=== PATIENT | female | born 1965 | race Caucasian/White ===

== ENCOUNTER → 2019-03-06 | Outpatient (CLI) | payer BC ==
[~2019-03-06] MED LIST: PROHANCE 279.3MG/ML 15ML VIAL (A9576) As Ordered ONE
--- NOTE | 2019-03-06 16:57 | REP ---
MRI PANCREAS WITH AND WITHOUT CONTRAST: TECHNIQUE: Multiple sequences obtained in the axial and coronal planes prior to and following the intravenous administration of 14 mL ProHance. The visualized liver demonstrates scattered tiny cysts, less than 1 cm in diameter. The largest cyst is in the right lobe near the gallbladder measuring 8 mm maximally. Spleen is normal in size. Adrenals are normal with no nodule. Pancreas demonstrates no mass. There is no pancreatic duct dilatation. The common bile duct is mildly dilated up to 9 mm. No focal stricture or filling defect is seen involving the common bile duct. Visualized kidneys are unremarkable. No adenopathy or free fluid is seen in the visualized abdomen. IMPRESSION: Mild dilatation of the common bile duct 9 mm with no evidence of definite stricture and no evidence of choledocholithiasis. No evidence of cholelithiasis or gallbladder wall edema. There is mild central intrahepatic biliary prominence. There are several tiny subcentimeter cysts in the liver. The largest cyst is near the gallbladder in the right lobe of the liver 8 mm in maximum diameter. No pancreatic mass. No pancreatic duct dilatation. Unreviewed
== END ==
LOC: M RAD 14:39
PROVIDERS: ATTEND Internal Medicine Gastroenterology
DX: R10.9 Unspecified abdominal pain (principal)
CPT/HCPCS: 74183; A9576

== ENCOUNTER 2019-04-09 12:10 | Day surgery (SDC) | payer BC ==
[~2019-04-09] VITALS: Ht 162.6 cm; Wt 71.7 kg
[~2019-04-09 12:10] MED LIST changes: +ALBU8.5H INH; +MULTCAP PO; +NS 1,000 ML IV ONE; +ONDA4TAB6 PO; -PROHANCE 279.3MG/ML 15ML VIAL (A9576) As Ordered ONE; +SYMB16INH INH
[2019-04-09] MEDS ORDERED: ZYRTTAB8 PO (12:50)
[2019-04-09] MEDS ORDERED: LIDOCAINE 2% INJ 100 MG/5 ML SDV (FOR ANES.) As Ordered ONE (14:29)
[2019-04-09] MEDS ORDERED: PROPOFOL 200 MG/20 ML VIAL As Ordered ONE (14:29)
--- NOTE | 2019-04-09 15:02 | ROOR ---
Patient Name: Adrianna Arzate Procedure Date: 04/09/2019 2:06 PM Date of : 1965 Age: 54 Room: [facility] Gender: Female Note Status: Finalized Procedure: Upper GI endoscopy Indications: Dyspepsia, Nausea with vomiting Providers: Raj Arnold MD Referring MD: MARK MITCHELL DO Requesting Provider: Medicines: Monitored Anesthesia Care Complications: No immediate complications. Procedure: Pre-Anesthesia Assessment: - Prior to the procedure, a History and Physical was performed, and patient medications and allergies were reviewed. The patient is competent. The risks and benefits of the procedure and the sedation options and risks were discussed with the patient. All questions were answered and informed consent was obtained. Patient identification and proposed procedure were verified by the physician, the nurse and the anesthesiologist in the procedure room. Mental Status Examination: alert and oriented. Airway Examination: normal oropharyngeal airway and neck mobility. Respiratory Examination: clear to auscultation. CV Examination: normal. Prophylactic Antibiotics: The patient does not require prophylactic antibiotics. Prior Anticoagulants: The patient has taken no previous anticoagulant or antiplatelet agents. ASA Grade Assessment: II - A patient with mild systemic disease. After reviewing the risks and benefits, the patient was deemed in satisfactory condition to undergo the procedure. The anesthesia plan was to use monitored anesthesia care (MAC). Immediately prior to administration of medications, the patient was re-assessed for adequacy to receive sedatives. The heart rate, respiratory rate, oxygen saturations, blood pressure, adequacy of pulmonary ventilation, and response to care were monitored throughout the procedure. The physical status of the patient was re-assessed after the procedure. The Endoscope was introduced through the mouth, and advanced to the second part of duodenum. The upper GI endoscopy was accomplished without difficulty. The patient tolerated the procedure well. Findings: The examined esophagus was normal. The Z-line was regular and was found 40 cm from the incisors. Scattered moderate inflammation characterized by erosions, erythema, friability and granularity was found in the gastric antrum. Biopsies were taken with a cold forceps for histology. Verification of patient identification for the specimen was done by the physician and nurse using the patient's name, date and medical record number. Estimated blood loss was minimal. A 10 mm non-bleeding diverticulum was found in the first portion of the duodenum. Patchy severe inflammation characterized by congestion (edema), erythema, friability and granularity was found in the duodenal bulb and in the first portion of the duodenum. Biopsies for histology were taken with a cold forceps for evaluation of celiac disease. Impression: - Normal esophagus. - Z-line regular, 40 cm from the incisors. - Gastritis. Biopsied. - Non-bleeding duodenal diverticulum. - Duodenitis. Biopsied. Recommendation: - Patient has a contact number available for emergencies. The signs and symptoms of potential delayed complications were discussed with the patient. Return to normal activities tomorrow. Written discharge instructions were provided to the patient. - High fiber diet. - Continue present medications. - Await pathology results. - Telephone GI clinic for pathology results in 2 weeks. - Return to primary care physician. Raj Arnold MD Raj Arnold MD 04/09/2019 3:02:34 PM Electronically signed by Raj Arnold MD Number of Addenda: 0 Note Initiated On: 04/09/2019 2:06 PM Estimated Blood Loss: Estimated blood loss was minimal.
[2019-04-09 15:15] VITALS: BP 133/76
--- NOTE | 2019-04-09 15:27 | ROOR ---
Patient Name: Adrianna Arzate Procedure Date: 04/09/2019 2:07 PM Date of : 1965 Age: 54 Room: [facility] Gender: Female Note Status: Finalized Procedure: Colonoscopy Indications: Chronic diarrhea Providers: Raj Arnold MD Referring MD: MARK MITCHELL DO Requesting Provider: Medicines: Monitored Anesthesia Care Complications: No immediate complications. Procedure: Pre-Anesthesia Assessment: - Prior to the procedure, a History and Physical was performed, and patient medications and allergies were reviewed. The patient is competent. The risks and benefits of the procedure and the sedation options and risks were discussed with the patient. All questions were answered and informed consent was obtained. Patient identification and proposed procedure were verified by the physician, the nurse and the anesthesiologist in the procedure room. Mental Status Examination: alert and oriented. Airway Examination: normal oropharyngeal airway and neck mobility. Respiratory Examination: clear to auscultation. CV Examination: normal. Prophylactic Antibiotics: The patient does not require prophylactic antibiotics. Prior Anticoagulants: The patient has taken no previous anticoagulant or antiplatelet agents. ASA Grade Assessment: II - A patient with mild systemic disease. After reviewing the risks and benefits, the patient was deemed in satisfactory condition to undergo the procedure. The anesthesia plan was to use monitored anesthesia care (MAC). Immediately prior to administration of medications, the patient was re-assessed for adequacy to receive sedatives. The heart rate, respiratory rate, oxygen saturations, blood pressure, adequacy of pulmonary ventilation, and response to care were monitored throughout the procedure. The physical status of the patient was re-assessed after the procedure. The Colonoscope was introduced through the anus and advanced to the terminal ileum, with identification of the appendiceal orifice and IC valve. The colonoscopy was performed without difficulty. The patient tolerated the procedure well. The quality of the bowel preparation was good. The terminal ileum, ileocecal valve, appendiceal orifice, and rectum were photographed. Scope insertion time was 4 minutes. Scope withdrawal time was 8 minutes. The total duration of the procedure was 12 minutes. Findings: The perianal and digital rectal examinations were normal. The terminal ileum appeared normal. Six sessile polyps were found in the recto-sigmoid colon. The polyps were 8 to 15 mm in size. These polyps were removed with a hot snare. Resection and retrieval were complete. To close a defect after polypectomy, one hemostatic clip was successfully placed. There was no bleeding at the end of the procedure. Verification of patient identification for the specimen was done by the physician and nurse using the patient's name, date and medical record number. Estimated blood loss was minimal. Multiple small and large-mouthed diverticula were found from sigmoid to descending colon. There was no evidence of diverticular bleeding. Normal mucosa was found in the entire colon. Biopsies for histology were taken with a cold forceps from the right colon, left colon and rectosigmoid colon for evaluation of microscopic colitis. Non-bleeding external and internal hemorrhoids were found during retroflexion. The hemorrhoids were medium-sized. Impression: - The examined portion of the ileum was normal. - Six 8 to 15 mm polyps at the recto-sigmoid colon, removed with a hot snare. Resected and retrieved. Clip was placed. - Moderate diverticulosis from sigmoid to descending colon. There was no evidence of diverticular bleeding. - Normal mucosa in the entire examined colon. Biopsied. - Non-bleeding external and internal hemorrhoids. Recommendation: - Patient has a contact number available for emergencies. The signs and symptoms of potential delayed complications were discussed with the patient. Return to normal activities tomorrow. Written discharge instructions were provided to the patient. - High fiber diet. - Continue present medications. - Await pathology results. - Repeat colonoscopy in 3 years for surveillance based on pathology results and for surveillance of multiple polyps. - Telephone GI clinic for pathology results in 2 weeks. - Return to primary care physician. Raj Arnold MD Raj Arnold MD 04/09/2019 3:27:16 PM Electronically signed by Raj Arnold MD Number of Addenda: 0 Note Initiated On: 04/09/2019 2:07 PM Estimated Blood Loss: Estimated blood loss was minimal.
== END 2019-04-09 15:28 | disposition home or self-care (01) ==
LOC: M OPP 12:10
PROVIDERS: ATTEND Internal Medicine Gastroenterology
DX: R10.13 Epigastric pain (principal); R11.2 Nausea with vomiting, unspecified; K29.70 Gastritis, unspecified, without bleeding; K29.80 Duodenitis without bleeding; K57.10 Diverticulosis of small intestine without perforation or abscess without bleeding; D12.7 Benign neoplasm of rectosigmoid junction; K64.8 Other hemorrhoids; K52.9 Noninfective gastroenteritis and colitis, unspecified; K57.30 Diverticulosis of large intestine without perforation or abscess without bleeding; J45.909 Unspecified asthma, uncomplicated; F17.218 Nicotine dependence, cigarettes, with other nicotine-induced disorders; Z79.899 Other long term (current) drug therapy; M79.7 Fibromyalgia

== ENCOUNTER → 2021-02-21 | Outpatient (REF) | payer BC ==
[~2021-02-21] MED LIST changes: -NS 1,000 ML IV ONE; +ZYRTTAB8 PO
== END ==
LOC: M LAB REF 13:23
PROVIDERS: ATTEND Orthopaedic Surgery
DX: L72.0 Epidermal cyst (principal)

== ENCOUNTER → 2021-11-13 | Outpatient (CLI) | payer BC | LOC: M PLARAD 10:36 | PROVIDERS: ATTEND Dermatology | DX: C44.329 Squamous cell carcinoma of skin of other parts of face (principal) | CPT/HCPCS: 78816; A9552 ==

== ENCOUNTER → 2024-05-14 | Outpatient (CLI) | payer OTHER ==
[~2024-05-14] MED LIST changes: +ISOVUE-370 76% 100ML VIAL As Ordered ONE; +ONDA-282 PO; -ONDA4TAB6 PO
== END ==
LOC: M RAD 13:23
PROVIDERS: ATTEND Surgery
DX: R10.13 Epigastric pain (principal); R10.32 Left lower quadrant pain; K57.30 Diverticulosis of large intestine without perforation or abscess without bleeding
CPT/HCPCS: 74177; Q9967